=== PATIENT | male | born 1980 | race Caucasian/White ===

== ENCOUNTER 2024-12-18 04:21 | Emergency (ER) | payer SELFPAY ==
[2024-12-18 04:23] VITALS: BP 174/106
--- NOTE | 2024-12-18 04:31 | ED.GENMED ---
History of Present Illness
General
Chief Complaint: Extremity Pain (non-traumatic)
Source: patient
Exam Limitations: none
Time Seen by Provider: 12/18/24 04:27
Nursing documentation reviewed up to this point in time: agreed with
History of Present Illness
History of Present Illness:
44-year-old male with past medical history of anxiety, depression, presents to the ER today with concerns of pain and swelling to his right elbow. He reports that this started 2 days ago. It happened in the past and went away on its own. This
time, the pain is getting worse and is not getting better with ibuprofen. He denies any clear inciting injury. 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 He reports that the area
surrounding the swelling has become slightly red. He denies any other injuries.
Review of Systems
Review of Systems
All Other Systems: ROS reviewed and negative except as documented in HPI and ROS
Phy Exam
Physical Exam
Physical Exam:
General: Patient is well appearing and in no acute distress; non-toxic
Skin: Warm and dry, no rashes or lesions
Head: Normocephalic, atraumatic
Eyes: Sclera non-icteric. EOMs intact.
Cardiac: Regular rate
Peripheral Vascular: Right sided olcecranon swelling noted with mild overlying erythema, 2+ brachial, ulnar, and radial pulses noted
Pulm: Normal respiratory effort
Musculoskeletal: Full range of motion of right elbow and right shoulder joint with slightly limited right flexion secondary to pain
Neuro: CN II-XII intact, no focal neurologic deficits.Sensation intact.
Psychiatric: Appropriate mood and affect.
Course
Orders/Labs/Results
Orders:
Orders
12/18/24 04:35
Ketorolac [Toradol] 30 mg IM NOW STA
12/18/24 04:36
CR Elbow - Right Min 3 Views Urgent
Reason For Exam: right elbow pain
12/18/24 05:53
Cephalexin Monohydrate [Keflex] 500 mg PO NOW STA
Vital Signs
Initial and Last Documented VS:
Initial Vital Signs
Temp Pulse Resp BP Pulse Ox
98 F 102 24 174/106 96
12/18/24 04:23 12/18/24 04:23 12/18/24 04:23 12/18/24 04:23 12/18/24 04:23
Last Documented Vital Signs
Temp Pulse Resp BP Pulse Ox
98 F 90 18 159/84 96
12/18/24 04:23 12/18/24 05:35 12/18/24 05:35 12/18/24 05:35 12/18/24 05:35
MDM/Problems Addressed
Differential Diagnosis Includes:
ddx include olecranon bursitis, cellulitis, septic bursitis, musculoskeletal sprain/strain
MDM/Problems Addressed:
44-year-old male presents to the ER today with concerns of swelling and pain to his right elbow. He also has associated overlying erythema. No clear inciting injury. History and physical exam consistent with olecranon bursitis. He has no signs
or symptoms concerning for septic arthritis. Patient was given Toradol and ice pack. Considering small area of overlying erythema, will cover for cellulitis/septic bursitis with Keflex. Strict return precautions discussed. Patient stable for
discharge.
His CR shows no acute fracture or dislocation, no gas
Chronic conditions affecting care:
anxiety, depression
*Pulse Oximetry
SaO2: 96
Patient hypoxic: no
*Critical Care Note
Total Time (30-74mins, 75-104mins- exclusive of procedures): Not Applicable
Data Reviewed
Review of Other/Old Records Reveals: Records (no prior ER physician documentation for review ) and Discharge Summary (no discharge summary in [facility] for review )
Source: patient and records
ED Attending Note
-
Portions of this chart may have been created with voice recognition software.� Occasional wrong word or��sound alike� substitutions may have occurred due to the inherent limitations of voice recognition software.
Discharge Plan
Departure
Patient Disposition: Home (Routine Discharge)
Date of Disposition: 12/18/24
Time of Disposition: 05:58
Patient with high blood pressure during this ER visit?: Yes
Condition: Good
Discharge Problem:
Olecranon bursitis
Instructions: Bursitis - ED (DC), BLOOD PRESSURE
Prescriptions:
New
cephalexin 500 mg capsule
500 mg PO QID 7 Days Qty: 28 0RF
Referrals:
Riley Emery MD [Active, Orthopedics] - Call in 1-3 days for appt
NONE,* [Family Provider, Internal Medicine]
Activity Restrictions/Additional Instructions:
Please call the attached number to schedule an appointment to see orthopedics. Please continue to take ibuprofen as needed. Please continue to ice the area. Please continue to monitor your symptoms.
Keflex has been sent to your pharmacy. Please take 1 tablet 4 times daily for 7 days.
PLEASE RETURN TO ER SHOULD YOU DEVELOP CHEST PAIN, SHORTNESS OF BREATH, FEVERS OR CHILLS, INCREASING PAIN, REDNESS SPREADING UP THE ARM, INCREASING SWELLING, OR ANY OTHER SIGNS OR SYMPTOMS WORRISOME TO YOU.
Interventions
Interventions:
*Risk Screen - Suicide Last Done: 12/18/24 04:23
*General Assessment Last Done: 12/18/24 05:06
*Neglect/Abuse Screening Last Done: 12/18/24 04:23
*ED- Fall Risk Assessment Last Done: 12/18/24 05:06
*ED COVID-19 Vaccine History Last Done: 12/18/24 05:07
*ED Influenza Vaccine History Last Done: 12/18/24 05:07
*Nursing Disposition Last Done: 12/18/24 06:12
ED-Skin Assessment Last Done: 12/18/24 05:07
ED-Peripheral Vascular Assessment Last Done: 12/18/24 05:07
ED-Musculoskeletal Assessment Last Done: 12/18/24 05:07
Discharge Date and Time
Discharge Date/Time: 12/18/24 06:12
Print Language: HUNGARIAN
[2024-12-18] MEDS: TORADOL 30 MG IM (04:57)
--- NOTE | 2024-12-18 05:13 | PTCARENOTE ---
patient states he woke up with swelling and pain to right elbow and right hand. 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 + b/l radial pulses, CMS intact to b/l upper extremities. patient states this has happened
before on the same arm and it resolved itself, he never got it checked out.
[2024-12-18 05:35] VITALS: BP 159/84
[2024-12-18] MEDS: KEFLEX 500 MG PO (06:09)
== END 2024-12-18 06:12 | disposition home or self-care (01) ==
LOC: EMR 04:21
PROVIDERS: EMERGENCY PHYSICIAN Emergency Medicine
DX: M70.21 Olecranon bursitis, right elbow (principal)
CPT/HCPCS: 96372; 99284; 73080

== ENCOUNTER 2025-03-03 20:54 | Emergency (ER) | payer BC, SELFPAY ==
[2025-03-03 21:05] VITALS: BP 168/108
[2025-03-04 01:04] VITALS: BMI 38.5
[2025-03-04 01:11] VITALS: BP 141/77
--- NOTE | 2025-03-04 02:24 | ED.GENMED ---
History of Present Illness
General
Chief Complaint: Extremity Pain (non-traumatic)
Source: patient and previous hospital records (ED visit December 2024 when patient presented with right elbow pain, swelling. Diagnosed with olecranon bursitis.)
Exam Limitations: none
Time Seen by Provider: 03/04/25 02:15
Nursing documentation reviewed up to this point in time: agreed with
History of Present Illness
History of Present Illness:
HISTORY OF PRESENT ILLNESS
The patient is a 44-year-old male who presents with left knee pain that began 2 weeks ago, progressively worse. The patient denies any recent trauma, falls, or twist to the knee and has never experienced pain in this knee before. The patient reports
the pain is located more on the lateral aspect of the knee. 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 No associated
fever or swelling reported. The patient was previously seen in December for right elbow pain, which has since resolved. He was referred to orthopedics at that time but elbow pain and swelling resolved and thus neglected orthopedic follow-up.
Past History
Past History
ED Past Medical History: Psychiatric (Anxiety/depression)
ED Past Surgical History: Orthopedic (Hand)
Social History
Tobacco: Non-smoker
Alcohol: Occasional
Personal: Single
Living: with family
Employment: Employed
Family History
Family History: Other (Noncontributory)
Phy Exam
Physical Exam
Physical Exam:
GENERAL: 44-year-old overweight gentleman appears his stated age. Bright alert, pleasant, appears in no acute distress.
EYE: anicteric
NECK: Supple, nontender, no meningismus, no significant adenopathy.
ENT: oral mucosa is moist. No rhinorrhea.
CARDIAC: Regular rate and rhythm. no murmur.
LUNGS: Clear breath sounds bilaterally, no acute respiratory distress, no wheezes/rales/rhonchi
ABDOMEN: Soft, nondistended, without focal tenderness
NEUROLOGICAL: Alert and oriented x3, no focal neuro deficits.
SKIN: Warm and dry, normal color, skin intact. No rash.
MUSCULOSKELETAL: No C/C/E. peripheral pulses are full and equal b/l. Left knee has very minimal soft tissue swelling. Mild to moderate tenderness lateral aspect of the knee. Full range of motion with negative drawer. There is no crepitus. There
is no palpable effusion nor erythema. No tenderness to the knee anteriorly nor posteriorly.
PSYCH: Normal and appropriate interaction.
Course
Orders/Labs/Results
Orders:
Orders
03/03/25 21:09
Knee, Left 4 or More Views [CR Knee - Left 4 Or More View*] Urgent
Comment:
Reason For Exam: pain, decreased ROM
03/04/25 00:15
US Periph Venous LOWER Ext LT Urgent
Reason For Exam: redness, pain
03/04/25 02:24
Knee Immobilizer Left-Treatmen ONCE
Ketorolac [Toradol] 60 mg IM NOW STA
Vital Signs
Initial and Last Documented VS:
Initial Vital Signs
Temp Pulse Resp BP Pulse Ox
98.3 F 113 18 168/108 97
03/03/25 21:05 03/03/25 21:05 03/03/25 21:05 03/03/25 21:05 03/03/25 21:05
Last Documented Vital Signs
Temp Pulse Resp BP Pulse Ox
98.3 F 113 18 141/77 97
03/03/25 21:05 03/03/25 21:05 03/03/25 21:05 03/04/25 01:11 03/04/25 01:11
MDM/Problems Addressed
Differential Diagnosis Includes:
DIFFERENTIAL DIAGNOSIS
The Differential Diagnosis includes, in no particular order and is not limited to:
1. Lateral collateral ligament strain
2. Tendinitis
3. Meniscal tear
4. Osteoarthritis
5. Patellofemoral pain syndrome
6. Iliotibial band syndrome
7. Bakers cyst rupture
8. Rheumatoid arthritis
9. Bursitis
10. Fracture (although X-ray findings are normal)
MDM/Problems Addressed:
Acute left knee pain x 2 weeks.
Ultrasound left lower extremity shows no evidence of DVT. There is evidence of a Deutsch's cyst 5.7 x 1.6 cm.
X-ray left knee initially interpreted by myself, unremarkable.
History and exam most consistent with lateral collateral ligament strain. I suspect overuse syndrome.
There is no posterior knee tenderness thus Deutsch's cyst is likely an incidental finding.
There is no joint effusion nor erythema, nothing to suspect inflammatory arthropathy.
Recommend supportive measures. Will start a course of diclofenac 75 mg twice daily and patient will be placed in a knee immobilizer.
Will give a dose of Toradol now for pain.
He arrives with crutches and recommend he continue crutches for as needed partial weightbearing.
Discussed importance of rest, local heat and will plan for follow-up with orthopedics.
*Radiology
Radiology exam reviewed: preliminary read by ED provider (Left knee x-ray is unremarkable.) and radiology read reviewed (Venous Doppler shows no evidence of DVT. 5.7 x 1.6 cm popliteal fossa cyst.)
*Pulse Oximetry
SaO2: 97
Oxygen Mode of Delivery: Room air
Patient hypoxic: no
*Critical Care Note
Total Time (30-74mins, 75-104mins- exclusive of procedures): Not Applicable
ED Attending Note
-
Portions of this chart may have been created with voice recognition software.� Occasional wrong word or��sound alike� substitutions may have occurred due to the inherent limitations of voice recognition software.
Discharge Plan
Departure
Patient Disposition: Home (Routine Discharge)
Date of Disposition: 03/04/25
Time of Disposition: 02:33
Patient with high blood pressure during this ER visit?: Yes
Condition: Good
Discharge Problem:
Left lateral knee pain
Instructions: Overuse Injuries, Knee pain - ED (DC), How to use a knee brace
Prescriptions:
New
diclofenac sodium 75 mg tablet,delayed release (DR/EC)
75 mg PO BID PRN (Reason: pain) Qty: 30 0RF
No Action
cephalexin 500 mg capsule
500 mg PO QID 7 Days Qty: 28 0RF
Referrals:
UNKNOWN - PT DOES,NOT KNOW [Family Provider]
Jonny Jose MD [Active, Orthopedics] - Call in 1-3 days for appt
Interventions
Interventions:
*General Assessment Last Done: 03/04/25 01:06
*Neglect/Abuse Screening Last Done: 03/03/25 21:05
*ED COVID-19 Vaccine History Last Done: 03/04/25 01:06
*ED Influenza Vaccine History Last Done: 03/04/25 01:06
[facility] Fall Risk Assessment Tool Last Done: 03/04/25 01:06
*Risk Screen - Suicide (C-SSRS) Last Done: 03/03/25 21:05
ED-Skin Assessment Last Done: 03/04/25 01:06
ED-Musculoskeletal Assessment Last Done: 03/04/25 01:06
Discharge Date and Time
Print Language: ICELANDIC
[2025-03-04] MEDS: TORADOL 60 MG IM (02:44)
== END 2025-03-04 03:07 | disposition home or self-care (01) ==
LOC: EMR 20:54
PROVIDERS: EMERGENCY PHYSICIAN Emergency Medicine
DX: M25.562 Pain in left knee (principal); R22.42 Localized swelling, mass and lump, left lower limb; M71.22 Synovial cyst of popliteal space [Baker], left knee
CPT/HCPCS: 29505; 99284; 96372; 73564; 93971